=== PATIENT | female | born 1960 | race Two or more races ===

== ENCOUNTER 2022-11-10 19:46 | Emergency (ER) | payer MEDICAID ==
[~2022-11-10] VITALS: Ht 152.4 cm; Wt 81.0 kg
[2022-11-10] MEDS ORDERED: TRANEXAMIC ACID 1,000 MG in SODIUM CHL 0.9% 100 ML IV ONE (20:45)
[2022-11-10 21:44] LABS: Basophils # (auto) 0.1 10 ^3/uL (0-0.2); Eosinophils # (auto) 0 10 ^3/uL (0-0.8); Monocytes # (auto) 0.5 10 ^3/uL (0-1.3); Nucleated Red Blood Cells % 0.1 %; White Blood Cell 9.6 10^3/uL (4.4-10.8)
[2022-11-10 21:45] LABS: Basophils % (auto) 0.6 % (0.0-2.0); Eosinophils % (auto) 0.3 % (0.0-7.0); Lymphocytes # (auto) 1.2 10 ^3/uL (0.4-5.4); Lymphocytes % (auto) 12.7 % (10.0-50.0); Mean Corpuscular Hemoglobin 32.7 pg (28.0-32.0); Mean Corpuscular Hgb Conc. 33.5 g/dL (32.0-36.0); Mean Corpuscular Volume 97.6 fL (80.0-100.0); Neutrophils # (auto) 7.8 10 ^3/uL (1.6-8.6); Neutrophils % (auto) 81.4 % (37.0-80.0); Red Blood Cells 2.46 10^6/uL (4.0-5.20); Red Cell Distribution Width 13.1 % (11.8-14.3)
[2022-11-10 21:57] LABS: INR 0.97 (0.9-1.15); Partial Thromboplastin Time 21.4 sec (24.6-33.4)
[2022-11-10 22:04] LABS: Albumin 2.9 g/dL (3.4-5.0); Calcium 8.2 mg/dL (8.5-10.1); Potassium 3.8 mmol/L (3.5-5.1)
[2022-11-10 22:08] LABS: BUN/Creatinine Ratio 31.2; Bilirubin, Total 0.2 mg/dL (0.2-1.0); Total Protein 6.6 g/dL (6.4-8.2)
[2022-11-11 00:57] VITALS: BP 114/76
[2022-11-11 01:12] VITALS: BP 113/71
[2022-11-11 02:00] VITALS: BP 111/76
[2022-11-11 03:00] VITALS: BP 131/80
[2022-11-11 03:12] VITALS: BP 144/75
[2022-11-11 06:55] VITALS: BP 129/89
== END 2022-11-11 07:22 | disposition short-term general hospital (02) ==
LOC: ER 19:46
DX: S02.92XA Unspecified fracture of facial bones, initial encounter for closed fracture (principal); T14.8XXA Other injury of unspecified body region, initial encounter; R07.89 Other chest pain; W18.39XA Other fall on same level, initial encounter; Y93.89 Activity, other specified; Y92.89 Other specified places as the place of occurrence of the external cause; Y99.8 Other external cause status
CPT/HCPCS: 36415; 36430; 70450; 70486; 71045; 80053; 84484; 85025; 85610; 85730; 86850; 86900; 86901; 86920; 96365; 99285; P9016

== ENCOUNTER 2024-10-02 13:47 | Emergency (ER) | payer MEDICAID ==
[~2024-10-02] VITALS: Ht 157.5 cm; Wt 89.0 kg
--- NOTE | 2024-10-02 15:10 | ED.PDOC ---
History of Present Illness HPI Comments 64-year-old female presents with a chief complaint of bilateral leg swelling x 1 month. Patient states that she went to a clinic and was referred here to the ER. Patient mentions that she doesn't have pain to her lower legs unless she squeezes them. Patient is ambulatory and has a steady gait. Patient denies chest pain, SOB, or recent travel. No other symptoms or modifying factors present at this time. Chief Complaint: Extremity Swelling Time Seen by MD: 15:03 Reviewed Notes: Nurses Notes, Medications, Allergies Allergies: Coded Allergies: NO KNOWN ALLERGIES (Unverified , 11/07/22) Information Source: Patient Mode of Arrival: Ambulatory Severity: Moderate Timing: Months Duration: Since onset Prehospital treatment: None Past Medical History PAST MEDICAL HISTORY: Anxiety, Depression, High Lipids, HTN Surgical History: Denies all surgeries TABLE ATTENDANT History: No Pertinent TABLE ATTENDANT History Family History Family History: Unknown Social History Smoker: Non-Smoker Alcohol: Denies ETOH Use Drugs: Denies Drug Use Constitutional: denies: chills, diaphoresis, fatigue, fever, malaise, sweats, weakness, others EENTM: denies: blurred vision, double vision, ear bleeding, ear discharge, ear drainage, ear pain, ear ringing, eye pain, eye redness, hearing loss, mouth pain, mouth swelling, nasal discharge, nose bleeding, nose congestion, nose pain, photophobia, tearing, throat pain, throat swelling, voice changes, others Respiratory: denies: cough, hemoptysis, orthopnea, SOB at rest, shortness of breath, SOB with excertion, stridor, wheezing, others Cardiovascular: reports: edema (BILATERAL LOWER LEG); denies: chest pain, dizzy spells, diaphoresis, Dyspnea on exertion, irregular heart beat, left arm pain, lightheadedness, palpitations, PND, syncope, others Gastrointestinal: denies: abdomen distended, abdominal pain, blood streaked bowels, constipated, diarrhea, dysphagia, difficulty swallowing, hematemesis, melena, nausea, poor appetite, poor fluid intake, rectal bleeding, rectal pain, vomiting, others Genitourinary: denies: abnormal vagina bleeding, burning, dyspareunia, dysuria, flank pain, frequency, hematuria, incontinence, pain, , vagina discharge, urgency, others Neurological: denies: dizziness, fainting, headache, left sided numbness, left sided weakness, numbness, paresthesia, pre-existing deficit, right sided numbness, right sided weakness, seizure, speech problems, tingling, tremors, weakness, others Musculoskeletal: denies: back pain, gout, joint pain, joint swelling, muscle pain, muscle stiffness, neck pain, others Integumetry: denies: bruises, change in color, change in hair/nails, dryness, laceration, lesions, lumps, rash, wounds, others Allergic/Immunocompromised: denies: Difficulty Healing, Frequent Infections, Hives, Itching, others Hematologic/Lymphatic: denies: anemia, blood clots, easy bleeding, easy bruising, swollen glands, others Endocrine: denies: excessive hunger, excessive sweating, excessive thirst, excessive urination, flushing, intolerance to cold, intolerance to heat, unexplained weight gain, unexplained weight loss, others Psychiatric: denies: anxiety, bipolar disorder, depression, hopeless, panic disorder, schizophrenia, sleepless, suicidal, others All Other Systems: Reviewed and Negative Physical Exam General Appearance: No Apparent Distress HEENT: Normal ENT Inspection, Pharynx Normal, TMs Normal Neck: Full Range of Motion, Non-Tender, Normal, Normal Inspection Respiratory: Chest Non-Tender, Lungs Clear, No Accessory Muscle Use, No Respiratory Distress, Normal Breath Sounds Cardiovascular: No Edema, No JVD, No Murmur, No Gallop, Normal Peripheral Pulses, Regular Rate/Rhythm Breast Exam: Deferred Gastrointestinal: No Organomegaly, Non Tender, No Pulsatile Mass, Normal Bowel Sounds, Soft Genitalia: Deferred Pelvic: Deferred Rectal: Deferred Extremities: No calf tenderness, Normal capillary refill, Pedal edema Musculoskeletal : Apperance: Normal Neurologic: Alert, patch driller II-XII nml as Tested, No Motor Deficits, Normal Affect, Normal Mood, No Sensory Deficits Cerebellar Function: Normal Reflexes: Normal Skin: Dry, Normal Color, Warm Lymphatic: No Adenopathy Was a procedure done? Was a procedure done?: No Differential Dx Considerations may include: Edema, cellulitis X-Ray, Labs, Meds, VS Vital Signs Date Time Temp Pulse Resp B/P (MAP) Pulse Ox O2 Delivery O2 Flow Rate FiO2 10/02/24 14:27 97.1 83 16 142/95 (111) 97 Bilateral Ultrasound Impression: There is no sonographic evidence for DVT in the lower extremities We attempted to call the patient's for blood work as well as a urine sample but the patient has now eloped from the department's Images Reviewed?: Images reviewed and evaluated by me Time of 1ST Reevaluation: 15:33 Reevaluation 1ST: Unchanged Patient Education/Counseling: Diagnosis, Treatment, Prognosis Family Education/Counseling: Diagnosis, Treatment, Prognosis Departure 1 Departure Time of Disposition: 18:45 Impression: Primary Impression: Pedal edema Disposition: 07 LEFT AWOL/ELOPED Condition: Fair Critical Care Note Critical Care Time?: No Stability Stability form required: No Heart Score Heart Score: Heart Score Response (Comments) Value History N/A 0 EKG N/A 0 Age N/A 0 Risk Factors N/A 0 Troponin N/A 0 Total 0 I personally scribed for MONSERRAT FELDMAN MD ([email or web address]) on 10/02/24 at 15:10. Electronically submitted by Fredis Esteves ([email or web address]). I personally scribed for MONSERRAT FELDMAN MD ([email or web address]) on 10/02/24 at 16:43. Electronically submitted by Fredis Esteves ([email or web address]). MONSERRAT FELDMAN MD Oct 02, 2024 15:10
--- NOTE | 2024-10-02 15:47 | DVH ---
BILATERAL LOWER EXTREMITY VENOUS DOPPLER CLINICAL HISTORY: swelling Technique: Duplex Doppler evaluation of the deep venous systems of both lower extremities from the co mmon femoral veins to the popliteal veins including color Doppler and spectral/pulsed waveform analys is was performed. COMPARISON: None FINDINGS: The right and left common femoral, superficial femoral, popliteal, posterior tibial veins and trifur cations appear patent with normal augmentation, phasicity, compressibility and color-flow. IMPRESSION: 1. There is no sonographic evidence for DVT in the lower extremities. HS:Y
== END 2024-10-02 20:07 | disposition left against medical advice (07) ==
LOC: ER 13:47
DX: R60.0 Localized edema (principal); F41.9 Anxiety disorder, unspecified; F32.9 Major depressive disorder, single episode, unspecified; E78.5 Hyperlipidemia, unspecified; I10 Essential (primary) hypertension
CPT/HCPCS: 93970

== ENCOUNTER 2024-10-05 12:37 | Emergency (ER) | payer MEDICAID ==
[~2024-10-05] VITALS: Ht 157.5 cm; Wt 90.3 kg
[2024-10-05 14:12] LABS: Basophils # (auto) 0 10 ^3/uL (0-0.2); Basophils % (auto) 0.6 % (0.0-2.0); Eosinophils # (auto) 0.2 10 ^3/uL (0-0.8); Eosinophils % (auto) 2.5 % (0.0-7.0); Hematocrit 34.6 % (36.0-46.0); Hemoglobin 11.3 g/dL (12.2-16.2); Lymphocytes % (auto) 30.2 % (10.0-50.0); Mean Corpuscular Hemoglobin 31.6 pg (28.0-32.0); Mean Corpuscular Hgb Conc. 32.7 g/dL (32.0-36.0); Mean Corpuscular Volume 96.8 fL (80.0-100.0); Monocytes # (auto) 0.6 10 ^3/uL (0-1.3); Monocytes % (auto) 8.6 % (0.0-12.0); Neutrophils # (auto) 3.8 10 ^3/uL (1.6-8.6); Neutrophils % (auto) 58.1 % (37.0-80.0); Nucleated Red Blood Cells % 0.1 %; Platelet Count (auto) 343 10^3/uL (140-450); Red Blood Cells 3.57 10^6/uL (4.0-5.20); Red Cell Distribution Width 13.9 % (11.8-14.3); White Blood Cell 6.5 10^3/uL (4.4-10.8)
[2024-10-05 14:13] LABS: Anion Gap 7 (5-15); Carbon Dioxide 26 mmol/L (20-31); Chloride 105 mmol/L (98-107); Potassium 4.5 mmol/L (3.5-5.1); Sodium 138 mmol/L (136-145)
[2024-10-05 14:14] LABS: Calcium 9.4 mg/dL (8.7-10.4)
[2024-10-05 14:18] LABS: Glucose 83 mg/dL (74-106)
[2024-10-05 14:19] LABS: Blood Urea Nitrogen 17 mg/dL (9-23)
--- NOTE | 2024-10-05 15:58 | ED.PDOC ---
Musculoskeletal HPI Comments 64 y.o female with PMHx of HTN, depression and hyperlipidemia, presents to the ED for a chief complaint of bilateral lower extremity swelling and pain that has been ongoing for more than one month. Patient reports swelling starts below her knee, radiates down to her feet and has pain on palpation. Patient denies any water pill use, chest pain, SOB, fever, or chills. Chief Complaint: Lower Extremity Time Seen by MD: 15:22 Primary Care Provider: stoop Reviewed Notes: Nurses Notes, Medications, Allergies Allergies: Coded Allergies: NO KNOWN ALLERGIES (Unverified , 11/07/22) Information Source: Patient Mode of Arrival: Ambulatory Location: Bilateral Extremity Location: Foot, Leg Timing: Months Severity: Moderate Able to Move Extremity: Yes Bear Weight: Fully Pain: Moderate Mechanism: None Circumstances: Spontaneous Onset of Symptoms: Spontaneous Symptoms: Swelling, Pain DVT Risk Factors: NONE Associated signs and symptoms: Swelling, Leg pain Past Medical History PAST MEDICAL HISTORY: Anxiety, Depression, High Lipids, HTN Surgical History: Denies all surgeries NSH TEACHER History: No Pertinent NSH TEACHER History Family History Family History: Unknown Social History Smoker: Non-Smoker Alcohol: Denies ETOH Use Drugs: Denies Drug Use Lives In: Home Constitutional: denies: chills, diaphoresis, fatigue, fever, malaise, sweats, weakness, others EENTM: denies: blurred vision, double vision, ear bleeding, ear discharge, ear drainage, ear pain, ear ringing, eye pain, eye redness, hearing loss, mouth pain, mouth swelling, nasal discharge, nose bleeding, nose congestion, nose pain, photophobia, tearing, throat pain, throat swelling, voice changes, others Respiratory: denies: cough, hemoptysis, orthopnea, SOB at rest, shortness of breath, SOB with excertion, stridor, wheezing, others Cardiovascular: denies: chest pain, dizzy spells, diaphoresis, Dyspnea on exertion, edema, irregular heart beat, left arm pain, lightheadedness, palpitations, PND, syncope, others Gastrointestinal: denies: abdomen distended, abdominal pain, blood streaked bowels, constipated, diarrhea, dysphagia, difficulty swallowing, hematemesis, melena, nausea, poor appetite, poor fluid intake, rectal bleeding, rectal pain, vomiting, others Genitourinary: denies: abnormal vagina bleeding, burning, dyspareunia, dysuria, flank pain, frequency, hematuria, incontinence, pain, , vagina discharge, urgency, others Neurological: denies: dizziness, fainting, headache, left sided numbness, left sided weakness, numbness, paresthesia, pre-existing deficit, right sided numbness, right sided weakness, seizure, speech problems, tingling, tremors, weakness, others Musculoskeletal: reports: others (Bilateral leg and feet swelling and pain ); denies: back pain, gout, joint pain, joint swelling, muscle pain, muscle stiff ness, neck pain Integumetry: denies: bruises, change in color, change in hair/nails, dryness, laceration, lesions, lumps, rash, wounds, others Allergic/Immunocompromised: denies: Difficulty Healing, Frequent Infections, Hives, Itching, others Hematologic/Lymphatic: denies: anemia, blood clots, easy bleeding, easy bru ising, swollen glands, others Endocrine: denies: excessive hunger, excessive sweating, excessive thirst, e xcessive urination, flushing, intolerance to cold, intolerance to heat, unexplained weight gain, unexplained weight loss, others Psychiatric: denies: anxiety, bipolar disorder, depression, hopeless, panic disorder, schizophrenia, sleepless, suicidal, others All Other Systems: Reviewed and Negative Physical Exam General Appearance: No Apparent Distress, Normal HEENT: Normal ENT Inspection, Pharynx Normal, TMs Normal Neck: Full Range of Motion, Non-Tender, Normal, Normal Inspection Respiratory: Chest Non-Tender, Lungs Clear, No Accessory Muscle Use, No Respiratory Distress, Normal Breath Sounds Cardiovascular: No Edema, No JVD, No Murmur, No Gallop, Normal Peripheral Pulses, Regular Rate/Rhythm Breast Exam: Deferred Gastrointestinal: No Organomegaly, Non Tender, No Pulsatile Mass, Normal Bowel Sounds, Soft Genitalia: Deferred Pelvic: Deferred Rectal: Deferred Extremities: No calf tenderness, Normal capillary refill, Normal inspection, Normal range of motion, Non-tender, Other (2+ bilateral lower extremity edema extending up to the knees, symmetric) Musculoskeletal : Apperance: Normal Neurologic: Alert, plumbing warehouse helper II-XII nml as Tested, No Motor Deficits, Normal Affect, Normal Mood, No Sensory Deficits Cerebellar Function: Normal Reflexes: Normal Skin: Dry, Normal Color, Warm Lymphatic: No Adenopathy Was a procedure done? Was a procedure done?: No Differential Diagnosis EXT Differential Diagnosis: Compartment Syndrome, Gout, Rheumatoid X-Ray, Labs, Meds, VS Vital Signs Date Time Temp Pulse Resp B/P (MAP) Pulse Ox O2 Delivery O2 Flow Rate FiO2 10/05/24 17:12 98.6 86 20 135/83 (100) 97 98.6 10/05/24 17:12 86 16 97 Room Air 10/05/24 12:57 98.0 84 19 146/92 (110) 97 Lab Test 10/05/24 13:29 Range/Units White Blood Count 6.5 4.4-10.8 10^3/uL Red Blood Count 3.57 L 4.0-5.20 10^6/uL Hemoglobin 11.3 L 12.2-16.2 g/dL Hematocrit 34.6 L 36.0-46.0 % Mean Corpuscular Volume 96.8 80.0-100.0 fL Mean Corpuscular Hemoglobin 31.6 28.0-32.0 pg Mean Corpuscular Hemoglobin Concent 32.7 32.0-36.0 g/dL Red Cell Distribution Width 13.9 11.8-14.3 % Platelet Count 343 140-450 10^3/uL Mean Platelet Volume 7.4 6.9-10.8 fL Neutrophils (%) (Auto) 58.1 37.0-80.0 % Lymphocytes (%) (Auto) 30.2 10.0-50.0 % Monocytes (%) (Auto) 8.6 0.0-12.0 % Eosinophils (%) (Auto) 2.5 0.0-7.0 % Basophils (%) (Auto) 0.6 0.0-2.0 % Neutrophils # (Auto) 3.8 1.6-8.6 10 ^3/uL Lymphocytes # (Auto) 2.0 0.4-5.4 10 ^3/uL Monocytes # (Auto) 0.6 0-1.3 10 ^3/uL Eosinophils # (Auto) 0.2 0-0.8 10 ^3/uL Basophils # (Auto) 0 0-0.2 10 ^3/uL Nucleated Red Blood Cells 0.1 % Sodium Level 138 136-145 mmol/L Potassium Level 4.5 3.5-5.1 mmol/L Chloride Level 105 98-107 mmol/L Carbon Dioxide Level 26 20-31 mmol/L Anion Gap 7 5-15 Blood Urea Nitrogen 17 9-23 mg/dL Creatinine 0.68 0.550-1.02 mg/dL Glomerular Filtration Rate Calc 96 >90 mL/min BUN/Creatinine Ratio 25.0 H 10.0-20.0 Serum Glucose 83 74-106 mg/dL Calcium Level 9.4 8.7-10.4 mg/dL Troponin I High Sensitivity 3 L </=34 ng/L B-Type Natriuretic Peptide 33.15 0-100 pg/mL X-Ray, Labs, Meds, VS Comment 64-year-old female here today with evidence of bilateral lower extremity edema extending up to the knees. Vitals signs stable, afebrile. Labs overall reassuring without any significant acute findings. Patient was instructed on elevating her legs and wearing compression stockings and avoiding excessive salt intake and was instructed to follow up with her primary care provider within 2-3 days for re-evaluation and for consideration of the starting a diuretic. Patient expressed understanding of this. Patient ambulating with a steady gait without assistance. Patient discharged home in stable condition in no distress was strict return precautions for any signs of chest pain, respiratory distress, numbness, weakness, fevers, p.o. intolerance, or any other concerning symptoms. Time of 1ST Reevaluation: 15:54 Reevaluation 1ST: Unchanged Patient Education/Counseling: Diagnosis, Treatment, Prognosis Family Education/Counseling: No Family Present Departure 1 Departure Time of Disposition: 18:23 Impression: Primary Impression: Dependent edema Additional Impression: Leg swelling Disposition: 01 HOME / SELF CARE / HOMELESS Condition: Stable Critical Care Note Critical Care Time?: No Stability Stability form required: No I personally scribed for JAMESON COLLINS MD ([email or web address]) on 10/05/24 at 15:58. Electronically submitted by Ya Alfaro ([facility]). JAMESON COLLINS MD Oct 05, 2024 15:58
[2024-10-05 17:12] VITALS: BP 135/83; PULSE 86; RESP 16; TEMP 98.6; O2SAT 97
== END 2024-10-05 17:16 | disposition home or self-care (01) ==
LOC: ER 12:43
DX: R60.0 Localized edema (principal); M79.89 Other specified soft tissue disorders; I10 Essential (primary) hypertension; E78.5 Hyperlipidemia, unspecified; F41.9 Anxiety disorder, unspecified; F32.A Depression, unspecified; R06.02 Shortness of breath
CPT/HCPCS: 36415; 80048; 83880; 84484; 85025

== ENCOUNTER 2024-11-20 10:55 | Inpatient (IN) | payer MEDICAID ==
[~2024-11-20] VITALS: Ht 152.4 cm; Wt 96.0 kg
--- NOTE | 2024-11-20 10:59 | ED.PDOC ---
HPI Comments HPI: Poor Historian. 64y F who presents to the ED via EMS for chief complaint of chest pain. Pt had the following course of events: - pt states she was at urgent care for chest pain and pt told urgent care staff, she was short of breath and having chest pain. Patient was given an aspirin at the urgent care. - EMS arrived on scene and offered pt 1 nitro but pt states her chest pain went away and was brought to the ED with no interventions done - pt in the ED, states she has been having chest pain since yesterday and states the pain started while pt was cooking. - pt states the pain was substernal, constant, non-radiating, with noted increased pain while drinking liquids but no associated relieving factors. - pt states she has been sick for the past few days with associated"cold" symptoms - pt otherwise denies having this chest pain in the past PMH: hypertension, hyperlipidemia, depression PSH: denies Allergies: nkda Social history: denies tobacco use, denies ETOH use, denies drug use REVIEW OF SYSTEMS: CONSTITUTIONAL: Denies acute: fever, diaphoresis, chills, HEAD: Denies acute: headache, photophobia Eyes: Denies acute: Double vision, vision loss, eye pain, eye discharge. EARS: Denies acute: tinnitus, hearing loss, ear discharge, ear pain, THROAT: Denies acute: sore throat, swelling, difficulty swallowing , pain with swa llowing, change in voice. NECK: Denies acute: neck pain, neck swelling, stiff neck. HEART: Denies acute : palpitations, LUNGS: Denies acute: wheezing, cough, hemoptysis ABDOMEN: Denies acute: abdominal pain, Nausea, Vomiting, diarrhea, melena , hematemesis, hematochezia SKIN: Denies acute: rash, redness, lesions, itchiness. EXTREMITIES: Denies acute: calf pain, numbness, tingling, weakness, denies pain in extremity. Denies acute: Low back pain. Neuro: Denies acute: focal neurological deficit, motor or sensory focal neurological deficit, tremors, seizure like activity, confusion, dizziness, change in mental status, loss of bowel or bladder function, cauda equina like symptoms. : Denies acute: dysuria, hematuria, flank pain, increase in urinary frequency. PSYCH: Denies acute: hallucination, suicidal ideation, homicidal ideation. FEMALE: Denies acute: abnormal vaginal bleeding, foul odor, unusual discharge. PHYSICAL EXAM: General: [id number] acute distress, awake and alert. Head: normocephalic, atraumatic. Neck: supple, trachea is midline, no swelling. Throat: Normal phonation. Eyes:, no erythema, no purulent discharge, no proptosis, no icterus. Heart: regular rate, regular rhythm, no significant murmur appreciated. Lungs: no apparent respiratory distress, Able to speak in full sentences. No wheezing, no rhonchi, no crackles. No stridors Clear to auscultation bilaterally. Abdomen: non tender to palpation, non distended, soft, no guarding, no rebound, + bowel sounds. Neuro: Awake, Alert, oriented to name, self, situation, follows commands GCS=15. Speech is normal. Skin: no petechia, no purpura, no cyanosis, non-pale, not jaundice. Lower extremities: --trace bilateral - Pitting edema no deformity, no focal swelling, no calf TTP. Makes eye contact. moves all four extremities. Face: no apparent facial droop. ED COURSE: Time Seen by MD: 11:05 Primary Care Provider: daisy Reviewed Notes: Nurses Notes, Medications, Allergies Allergies: Coded Allergies: NO KNOWN ALLERGIES (Unverified , 11/07/22) Home Meds Reported Medications Bupropion HCl (Bupropion Hydrochloride) 75 Mg Tab, 1 TAB PO DAILY 11/20/24 Sertraline Hcl (Sertraline Hcl) 100 Mg Tab, 1 TAB PO DAILY 11/20/24 Losartan Potassium (Losartan Potassium) 50 Mg Tab, 1 TAB PO DAILY 11/20/24 Aripiprazole (Aripiprazole) 20 Mg Tab, PO 11/20/24 Information Source: Patient, Emergency Med Personnel Mode of Arrival: EMS Brought in by: EMS Past Medical History PAST MEDICAL HISTORY: Anxiety, Depression, High Lipids, HTN Surgical History: Denies all surgeries CATEGORY DEVELOPMENT MANAGER History: No Pertinent CATEGORY DEVELOPMENT MANAGER History Family History Family History: Unknown Social History Smoker: Non-Smoker Alcohol: Denies ETOH Use Drugs: Denies Drug Use Lives In: Home Was a procedure done? Was a procedure done?: No CP Differential Dx Differential Diagnosis: N/A Differential Diagnosis: Other (Ddx include but not limitied to gastritis, musculoskeletal pain, radiculopathy, atypical chest pain, dissection, aneurysm, ACS, unstable angina, hiatal hernia, GERD, anxiety, costochondritis, PE, pneum othroax, neoplasm, cardiac ischemia, drug abuse, anemia.) X-Ray, Labs, Meds, VS Vital Signs Date Time Temp Pulse Resp B/P (MAP) Pulse Ox O2 Delivery O2 Flow Rate FiO2 11/20/24 14:05 78 11/20/24 11:23 161/104 11/20/24 11:14 84 17 98 Room Air* 0 21 11/20/24 11:14 97.4 84 17 161/104 (123) 98 97.4 11/20/24 11:02 98.1 89 17 168/101 (123) 96 98.1 11/20/24 10:57 86 Lab Test 11/20/24 14:45 11/20/24 12:10 11/20/24 11:10 Range/Units Troponin I High Sensitivity 4 4 4 </=34 ng/L White Blood Count 7.9 4.4-10.8 10^3/uL Red Blood Count 3.73 L 4.0-5.20 10^6/uL Hemoglobin 11.9 L 12.2-16.2 g/dL Hematocrit 35.7 L 36.0-46.0 % Mean Corpuscular Volume 95.6 80.0-100.0 fL Mean Corpuscular Hemoglobin 31.9 28.0-32.0 pg Mean Corpuscular Hemoglobin Concent 33.4 32.0-36.0 g/dL Red Cell Distribution Width 13.3 11.8-14.3 % Platelet Count 305 140-450 10^3/uL Mean Platelet Volume 7.5 6.9-10.8 fL Neutrophils (%) (Auto) 68.7 37.0-80.0 % Lymphocytes (%) (Auto) 21.9 10.0-50.0 % Monocytes (%) (Auto) 7.7 0.0-12.0 % Eosinophils (%) (Auto) 1.3 0.0-7.0 % Basophils (%) (Auto) 0.4 0.0-2.0 % Neutrophils # (Auto) 5.4 1.6-8.6 10 ^3/uL Lymphocytes # (Auto) 1.7 0.4-5.4 10 ^3/uL Monocytes # (Auto) 0.6 0-1.3 10 ^3/uL Eosinophils # (Auto) 0.1 0-0.8 10 ^3/uL Basophils # (Auto) 0 0-0.2 10 ^3/uL Nucleated Red Blood Cells 0.1 % Sodium Level 140 136-145 mmol/L Potassium Level 3.9 3.5-5.1 mmol/L Chloride Level 106 98-107 mmol/L Carbon Dioxide Level 26 20-31 mmol/L Anion Gap 8 5-15 Blood Urea Nitrogen 13 9-23 mg/dL Creatinine 0.61 0.550-1.02 mg/dL Glomerular Filtration Rate Calc 99 >90 mL/min BUN/Creatinine Ratio 21.3 H 10.0-20.0 Serum Glucose 127 H 74-106 mg/dL Hemoglobin A1c 5.5 <5.7 % A1C Lactic Acid Level 1.2 0.4-2.0 mmol/L Calcium Level 9.7 8.7-10.4 mg/dL Total Bilirubin 0.4 0.2-1.0 mg/dL Aspartate Amino Transferase (AST) 22 13-40 U/L Alanine Aminotransferase (ALT) 22 7-40 U/L Alkaline Phosphatase 117 H 46-116 U/L B-Type Natriuretic Peptide 54.85 0-100 pg/mL Total Protein 7.8 5.7-8.2 g/dL Albumin 4.4 3.2-4.8 g/dL Triglycerides Level 73 < 150 mg/dL Cholesterol Level 181 < 200 mg/dL LDL Cholesterol 107 H < 100 mg/dL HDL Cholesterol 71 H 40-59 mg/dL Lipase 33 12-53 U/L Thyroid Stimulating Hormone (TSH) 2.89 0.55-4.78 uIU/mL Current Medications Medications (Trade) Dose Ordered Sig/Robb Route Start Time Stop Time Status Last Admin Nitroglycerin (Ntrostat Sublingual) 0.4 mg ONCE ONCE SL 11/20/24 11:15 11/20/24 11:16 DC 11/20/24 11:[address] [address] Ph: [phone] DIAGNOSTIC IMAGING Diagnostic Imaging Report : [id number] Signed PATIENT: AMIE MCBRIDEMACCT: [id number] UNIT: [id number] : 1960 LOC: ER ROOM / BED: / AGE / SEX: 64 / F ADM STATUS: REG ER SERVICE 1058 ORDERING PHYSICIAN: RADHA HERNANDEZ DO PROCEDURE(s): CXRP - CHEST PORTABLE REASON: CP ORDER NUMBER(s): [id number], ACCESSION NUMBER(s): [id number] XY CHEST PORTABLE, HISTORY: CP COMPARISON: XY CHEST PORTABLE on DOS: 11/10/22 XY CHEST PORTABLE on DOS: 11/10/22 TECHNICAL DATA: 1 view of the chest was obtained. FINDINGS: Lines and tubes: None Cardiomediastinal silhouette: normal Pulmonary vasculature: normal Lung expansion: normal Lung airspace: normal Lung interstitium: normal Pleura: normal Pneumothorax: no Bones: Unremarkable Other: no IMPRESSION: No acute intrathoracic abnormality. ATED BY: DARRELL ABEL MD DICTATED DATE/TIME: 11/20/24 1130 SIGNED BY: DARRELL ABEL MD SIGNED DATE/TIME: 11/20/24 1130 CC: Time of 1ST Reevaluation: 21:19 Reevaluation 1ST: Improved Patient Education/Counseling: Diagnosis, Treatment Family Education/Counseling: No Family Present Comments Patient presented with the above HPI.--cardiac---workup was initiated. patient was found with the above mentioned diagnosis. the following medications were ordered: please refer to order lists of meds and tests obtained by myself Dr. Hernandez. Patient ED course and VS have been stabilized. Patient has been reassessed in the ED and remained in a stable condition. Pertinent incidental findings were discussed with the patient and/or family. Patient/family voices understanding and is agreeable with plan. Patient has been observed in the ED adequate length of time to insure improvement/stability. Escalation of care considered: Consideration of escalation to observation or admission Patient was ADMITTED to the medicine team for further evaluation and treatment of their presentation. All the reports of any imaging studies that were ordered by myself were reviewed by myself. Departure 1 Departure Time of Disposition: 11:38 Impression: Primary Impression: Chest pain Disposition: ADMITTED INPATIENT Admit to: Tele Condition: Guarded Discharged With: Self Critical Care Note Critical Care Time?: No Heart Score Heart Score: Heart Score Response (Comments) Value History Moderate Suspicious 1 EKG Normal 0 Age >65 2 Risk Factors 1 or 2 risk factors 1 Troponin Normal limit 0 Total 4 I personally scribed for RADHA HERNANDEZ DO ([email or web address]) on 11/20/24 at 10:59. Electronically submitted by aDrlene Cloud ([employer] I personally scribed for RADHA HERNANDEZ DO ([email or web address]) on 11/20/24 at 11:21. Electronically submitted by Darlene Cloud ([email or web address]). I personally scribed for RADHA HERNANDEZ DO ([email or web address]) on 11/20/24 at 11:38. Electronically submitted by Darlene Cloud ([employer] I personally scribed for RADHA HERNANDEZ DO ([email or web address]) on 11/20/24 at 12:42. Electronically submitted by Darlene Cloud ([employer] RADHA HERNANDEZ DO Nov 20, 2024 10:59
[2024-11-20 11:14] VITALS: PULSE 84; RESP 17; O2SAT 98
[2024-11-20] MEDS: NITROGLYCERIN 0.4 MG SL TAB SL ONE (11:23)
--- NOTE | 2024-11-20 11:32 | DVH ---
XY CHEST PORTABLE, HISTORY: CP COMPARISON: XY CHEST PORTABLE on DOS: 11/10/22 XY CHEST PORTABLE on DOS: 11/10/22 TECHNICAL DATA: 1 view of the chest was obtained. FINDINGS: Lines and tubes: None Cardiomediastinal silhouette: normal Pulmonary vasculature: normal Lung expansion: normal Lung airspace: normal Lung interstitium: normal Pleura: normal Pneumothorax: no Bones: Unremarkable Other: no IMPRESSION: No acute intrathoracic abnormality.
[2024-11-20 11:33] LABS: Basophils # (auto) 0 10 ^3/uL (0-0.2); Basophils % (auto) 0.4 % (0.0-2.0); Eosinophils # (auto) 0.1 10 ^3/uL (0-0.8); Eosinophils % (auto) 1.3 % (0.0-7.0); Hematocrit 35.7 % (36.0-46.0); Hemoglobin 11.9 g/dL (12.2-16.2); Lymphocytes # (auto) 1.7 10 ^3/uL (0.4-5.4); Lymphocytes % (auto) 21.9 % (10.0-50.0); Mean Corpuscular Hemoglobin 31.9 pg (28.0-32.0); Mean Corpuscular Hgb Conc. 33.4 g/dL (32.0-36.0); Mean Corpuscular Volume 95.6 fL (80.0-100.0); Monocytes # (auto) 0.6 10 ^3/uL (0-1.3); Monocytes % (auto) 7.7 % (0.0-12.0); Neutrophils # (auto) 5.4 10 ^3/uL (1.6-8.6); Neutrophils % (auto) 68.7 % (37.0-80.0); Nucleated Red Blood Cells % 0.1 %; Platelet Count (auto) 305 10^3/uL (140-450); Red Blood Cells 3.73 10^6/uL (4.0-5.20); Red Cell Distribution Width 13.3 % (11.8-14.3); White Blood Cell 7.9 10^3/uL (4.4-10.8)
[2024-11-20 11:49] LABS: Alanine Aminotransferase 22 U/L (7-40); Albumin 4.4 g/dL (3.2-4.8); Anion Gap 8 (5-15); Aspartate Aminotransferase 22 U/L (13-40); BUN/Creatinine Ratio 21.3 (10.0-20.0); Bilirubin, Total 0.4 mg/dL (0.2-1.0); Blood Urea Nitrogen 13 mg/dL (9-23); Calcium 9.7 mg/dL (8.7-10.4); Carbon Dioxide 26 mmol/L (20-31); Chloride 106 mmol/L (98-107); Lipase 33 U/L (12-53); Potassium 3.9 mmol/L (3.5-5.1); Sodium 140 mmol/L (136-145); Total Protein 7.8 g/dL (5.7-8.2)
[2024-11-20 11:50] LABS: Alkaline Phosphatase 117 U/L (46-116); Glucose 127 mg/dL (74-106)
--- NOTE | 2024-11-20 15:35 | DVHHP2 ---
History of Present Illness Reason for Visit: Chest pain History of Present Illness Marleny Pruitt is a 64-year-old female with past medical history of hypertension, hyperlipidemia, depression, and anxiety presents to the ED with chest pain and shortness of breath that started to occur when she was cooking states that the pain is 10/10 pressure-like and intermittent. Patient's spouse at the bedside also reports that they went to the urgent care was complaining of chest pain was given aspirin with improvement. Patient denies any recent sick contacts, recent trauma or injury, fever chills chills, abdominal pain, nausea, vomiting, diarrhea, lightheadedness, weakness, and dizziness. Patient also reports that she is taking all her medications as prescribed. Cardiovascular: HTN, hyperipidemia Psych: Anxiety, Depression Past Surgical History: None Family History: None Smoke: No ALCOHOL: none Drugs: None Lives: with Family Domestic Violence: Neg Review of Systems Respiratory: Shortness of breath Cardiovascular: Chest Pain Allergies: Coded Allergies: NO KNOWN ALLERGIES (Unverified , 11/07/22) Exam Vital Signs Vital Signs Date Time Temp Pulse Resp B/P (MAP) Pulse Ox O2 Delivery O2 Flow Rate FiO2 11/20/24 11:23 161/104 11/20/24 11:14 84 17 98 Room Air* 0 21 11/20/24 11:14 97.4 97.4 General Appearance: Alert, Oriented X3, Cooperative, No acute distress HEENT: Atraumatic, PERRLA, EOMI, Mucous membr. moist/pink Respiratory: Clear to auscultation, Normal air movement Cardiovascular: Regular rate, Normal S1, Normal S2, No murmurs Abdominal: Normal bowel sounds, Soft, No tenderness, No hepatospenomegaly, No masses Extremities: No clubbing, No cyanosis, No edema, Normal pulses, No tenderness/swelling Skin: No rashes, No breakdown, No significant lesion Neuro: Normal gait, Normal speech, Strength at 5/5 X4 ext, Normal tone, Sensation intact Psych/Mental Status: Mental status NL, Mood NL Labs/Xrays Labs Test 11/20/24 14:45 11/20/24 11:10 Range/Units Troponin I High Sensitivity 4 </=34 ng/L White Blood Count 7.9 4.4-10.8 10^3/uL Red Blood Count 3.73 L 4.0-5.20 10^6/uL Hemoglobin 11.9 L 12.2-16.2 g/dL Hematocrit 35.7 L 36.0-46.0 % Mean Corpuscular Volume 95.6 80.0-100.0 fL Mean Corpuscular Hemoglobin 31.9 28.0-32.0 pg Mean Corpuscular Hemoglobin Concent 33.4 32.0-36.0 g/dL Red Cell Distribution Width 13.3 11.8-14.3 % Platelet Count 305 140-450 10^3/uL Mean Platelet Volume 7.5 6.9-10.8 fL Neutrophils (%) (Auto) 68.7 37.0-80.0 % Lymphocytes (%) (Auto) 21.9 10.0-50.0 % Monocytes (%) (Auto) 7.7 0.0-12.0 % Eosinophils (%) (Auto) 1.3 0.0-7.0 % Basophils (%) (Auto) 0.4 0.0-2.0 % Neutrophils # (Auto) 5.4 1.6-8.6 10 ^3/uL Lymphocytes # (Auto) 1.7 0.4-5.4 10 ^3/uL Monocytes # (Auto) 0.6 0-1.3 10 ^3/uL Eosinophils # (Auto) 0.1 0-0.8 10 ^3/uL Basophils # (Auto) 0 0-0.2 10 ^3/uL Nucleated Red Blood Cells 0.1 % Sodium Level 140 136-145 mmol/L Potassium Level 3.9 3.5-5.1 mmol/L Chloride Level 106 98-107 mmol/L Carbon Dioxide Level 26 20-31 mmol/L Anion Gap 8 5-15 Blood Urea Nitrogen 13 9-23 mg/dL Creatinine 0.61 0.550-1.02 mg/dL Glomerular Filtration Rate Calc 99 >90 mL/min BUN/Creatinine Ratio 21.3 H 10.0-20.0 Serum Glucose 127 H 74-106 mg/dL Lactic Acid Level 1.2 0.4-2.0 mmol/L Calcium Level 9.7 8.7-10.4 mg/dL Total Bilirubin 0.4 0.2-1.0 mg/dL Aspartate Amino Transferase (AST) 22 13-40 U/L Alanine Aminotransferase (ALT) 22 7-40 U/L Alkaline Phosphatase 117 H 46-116 U/L B-Type Natriuretic Peptide 54.85 0-100 pg/mL Total Protein 7.8 5.7-8.2 g/dL Albumin 4.4 3.2-4.8 g/dL Lipase 33 12-53 U/L XY CHEST PORTABLE, HISTORY: CP COMPARISON: XY CHEST PORTABLE on DOS: 11/10/22 XY CHEST PORTABLE on DOS: 11/10/22 TECHNICAL DATA: 1 view of the chest was obtained. FINDINGS: Lines and tubes: None Cardiomediastinal silhouette: normal Pulmonary vasculature: normal Lung expansion: normal Lung airspace: normal Lung interstitium: normal Pleura: normal Pneumothorax: no Bones: Unremarkable Other: no IMPRESSION: No acute intrathoracic abnormality. Assessment/Plan Assessment/Plan Assessment Chest pain Anemia Hypertension Obesity History of hyperlipidemia History of depression History of anxiety Plan Admit to tele Trend H&H EKG noted Lactic noted BNP Troponin negative x2 Echo ordered ACS workup ACS protocol Diet Antihypertensives Antiemetics Pain management Home medications reconciled Lovenox Counseled patient on lifestyle modifications, diet, and exercise Discussed plan of care with patient, patient's nurse, and nurse Plan discussed with: Patient, Spouse My Orders Orders - JOSH MARCOS TRACTOR OPERATOR HELPER Procedure Category Date Status Time Echo 2d Mode Cardiac US 11/20/24 Verified DOP 15:31 Thyroid Stimulating LAB 11/20/24 Verified Hormone 15:31 Lipid Panel LAB 11/20/24 Verified 15:31 Drug Screen LAB 11/20/24 Verified 15:31 Hemoglobin A1c LAB 11/20/24 Verified 15:31 Admit ADMIT 11/20/24 Verified 15:31 Code Status CODE 11/20/24 Verified 15:31 Vital Signs ELTON 11/20/24 Verified 15:31 Reed Fixer ELTON 11/20/24 Verified 15:31 Cardiac DIET 11/20/24 Verified Diet-2gna,Lofat,Lochol Dinner Aspirin Tablet PHA 11/21/24 Verified 10:00 Lipitor 40mg Hs PHA 11/20/24 Verified Hi-Intensity 22:00 Morphine Sulfate PHA 11/20/24 Verified Injection 15:45 Acetaminophen Tablet PHA 11/20/24 Verified (Tylenol Tablet) 15:45 Complete Blood Count LAB 11/21/24 Verified 04:00 Basic Metabolic Panel LAB 11/21/24 Verified 04:00 Date of Service: Nov 20, 2024 Billing Provider: JOSH MARCOS Common Visit Codes: [id number] INP/OBS CARE (HIGH) JOSH MARCOS Nov 20, 2024 15:35
[2024-11-20] MEDS ORDERED: BUPR75TA98 PO (15:45)
[2024-11-20] MEDS ORDERED: NITROGLYCERIN 0.4 MG SL TAB SL PRN ×2 (15:45)
[2024-11-20] MEDS ORDERED: LOSA-534 PO (15:45)
[2024-11-20] MEDS ORDERED: MORPHINE SULFATE 4 MG/ML SYR/VIAL IV PRN (15:45)
[2024-11-20] MEDS ORDERED: ARIP20TA49 PO (15:45)
[2024-11-20] MEDS ORDERED: SERT-160 PO (15:45)
[2024-11-20] MEDS ORDERED: hydrALAZINE HCL 20 MG/ML VL IV PRN (16:00)
[2024-11-20 16:44] LABS: Triglycerides 73 mg/dL (< 150)
[2024-11-20 16:46] LABS: Cholesterol 181 mg/dL (< 200)
[2024-11-20 16:49] LABS: HDL Cholesterol 71 mg/dL (40-59); LDL Cholesterol 107 mg/dL (< 100)
[2024-11-20 18:00] VITALS: PULSE 70; RESP 18; O2SAT 98
[2024-11-20 18:04] VITALS: BP 144/80; PULSE 70; TEMP 98.2; O2SAT 98
[2024-11-20] MEDS: MORPHINE SULFATE INJ 2 MG/ml SYRG IV PRN (18:10)
[2024-11-20 20:00] VITALS: PULSE 75; PULSE 79; RESP 14; O2SAT 98
[2024-11-20] MEDS: ATORVASTATIN 20 MG TAB PO SCH (20:38)
[2024-11-20 20:52] VITALS: BP 118/71; PULSE 75; RESP 14; TEMP 97.8; O2SAT 98
[2024-11-21] VITALS (8 sets, daily range): BP systolic 110–150; BP diastolic 62–103; PULSE 72–82; RESP 15–19; TEMP 97.4–98.4; O2SAT 93–100
[2024-11-21 07:14] LABS: Basophils # (auto) 0 10 ^3/uL (0-0.2); Basophils % (auto) 0.7 % (0.0-2.0); Eosinophils # (auto) 0.1 10 ^3/uL (0-0.8); Eosinophils % (auto) 2.8 % (0.0-7.0); Hemoglobin 11.5 g/dL (12.2-16.2); Lymphocytes # (auto) 1.3 10 ^3/uL (0.4-5.4); Lymphocytes % (auto) 24.9 % (10.0-50.0); Mean Corpuscular Hemoglobin 31.8 pg (28.0-32.0); Mean Corpuscular Volume 96.5 fL (80.0-100.0); Monocytes # (auto) 0.4 10 ^3/uL (0-1.3); Monocytes % (auto) 8.8 % (0.0-12.0); Neutrophils # (auto) 3.2 10 ^3/uL (1.6-8.6); Neutrophils % (auto) 62.8 % (37.0-80.0); Platelet Count (auto) 278 10^3/uL (140-450); Red Blood Cells 3.62 10^6/uL (4.0-5.20); Red Cell Distribution Width 13.7 % (11.8-14.3); White Blood Cell 5.1 10^3/uL (4.4-10.8)
[2024-11-21 07:24] LABS: Anion Gap 8 (5-15); Carbon Dioxide 25 mmol/L (20-31); Chloride 106 mmol/L (98-107); Potassium 4.3 mmol/L (3.5-5.1); Sodium 139 mmol/L (136-145)
--- NOTE | 2024-11-21 07:24 | ECG ---
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
[2024-11-21 07:30] LABS: BUN/Creatinine Ratio 17.1 (10.0-20.0); Blood Urea Nitrogen 12 mg/dL (9-23); Magnesium 2.3 mg/dL (1.6-2.6)
[2024-11-21 07:33] LABS: Glucose 108 mg/dL (74-106)
[2024-11-21 08:41] LABS: INR 0.99 (0.9-1.15); Partial Thromboplastin Time 26.8 SEC (24.5-34.5); Prothrombin Time 10.5 sec (9.3-11.8)
[2024-11-21] MEDS: ENOXAPARIN SOD 40 MG/0.4 ML SYRINGE SC SCH (10:24)
[2024-11-21] MEDS: ASPirin 81 mg TAB PO SCH (10:24)
--- NOTE | 2024-11-21 10:42 | DVHPNRES ---
Progress Note Date Seen: Nov 21, 2024 Resident Creating Document: FREIDA MADRID RESIDENT Medical Necessity Reason Pt with a Central, PICC or Fol: No Subjective Review of Systems Ms. Medel is a 64-year-old female with past medical history of hypertension, hyperlipidemia, anxiety and depression who was sent by her primary care physician due to chest pain and and bilateral lower extremity edema. Patient reports that the chest pain started 2 days back while she was cooking, pressure- like in nature, on the left side, does not radiate and not associated with exertion but does report being food getting stuck for the same amount of time. She reports dysphagia to solids and liquids. Denies burning pain. Reports that her bilateral lower extremity are swollen for the past 3 months. Denies smoking but drinks 1 alcoholic beverage every day. Associated symptoms include chills but denies fever, nausea, vomiting. Chest pain is exacerbated on palpation. On arrival patient's blood pressure was 168/101 mmHg, H&H was 11 and 35, WBC was 5. EKG showed normal sinus rhythm. environmental monitoring specialist was reviewed, patient had NSR. Tropes are negative, BNP 55. Echocardiogram is pending. Past medical/surgical history: See above Social history: Drinks 1 alcoholic beverage every day but denies smoking Patient seen at the bedside. Echocardiogram pending Objective vital signs Vital Sign Date Time Temp Pulse Resp B/P (MAP) Pulse Ox O2 Delivery O2 Flow Rate FiO2 11/21/24 09:00 97.4 79 19 128/76 (93) 93 97.4 11/20/24 20:00 Nasal Cannula* 1 24 Total Intake and Output 11/20/24 11/20/24 11/21/24 15:00 23:00 07:00 Intake Total 150 ml Output Total 0 ml Balance 150 ml medications Current Medications Medications Dose Ordered Sig/Robb Route Start Time Stop Time Status Last Admin Dose Admin Aspirin 81 mg DAILY PO 11/21/24 10:00 11/21/24 10:24 81 MG Atorvastatin Calcium 40 mg HS PO 11/20/24 22:00 11/20/24 20:38 40 MG Acetaminophen 650 mg Q6HP PRN PO 11/20/24 15:45 Nitroglycerin 0.4 mg Q5MINP PRN SL 11/20/24 15:45 Morphine Sulfate 2 mg Q30M PRN IV 11/20/24 15:45 11/20/24 18:10 2 MG Enoxaparin Sodium 40 mg DAILY SC 11/21/24 10:00 11/21/24 10:24 40 MG Hydralazine HCl 10 mg Q6HP PRN IV 11/20/24 16:00 Pantoprazole Sodium 40 mg DAILY IV 11/22/24 10:00 Ergocalciferol 50,000 unit Q7D PO 11/21/24 10:30 Examination Patient lying in bed, in no acute distress General: Well-built, afebrile, palor, mucosae are moist Cardiovascular: Regular S1 and S2. No murmurs, gallops or rubs. No JVD elevation. Bilateral 2+ pitting edema Respiratory: Normal B/L air entry on room air. Clear lung sounds on auscultation Abdomen: Soft, nontender, nondistended, normoactive bowel sounds, no rebound tenderness, no organomegaly, no masses Genitourinary: Deferred MSK/skin: Mobilizes 4 limbs. Skin is dry and warm Neurological: No motor, no sensitive deficits, normal speech. Pupils are isocoric and reactive. Psych/Mental Status: A/Ox3 laboratory and microbiology Laboratory Tests 11/21/24 05:28 Test 11/21/24 05:28 Range/Units Serum Glucose 108 H 74-106 mg/dL Labs and/or images reviewed: Labs reviewed by me, Image(s) reviewed by me Problem List/Assessment/Plan Problem List/Assessment/Plan Atypical Chest pain, likely secondary to costochondritis EKG NSR, tele regular rhythm no events Tropes and BNP WNL Bilateral lower extremity swelling likely lymphedema Ultrasound lower extremity unremarkable Dysphagia to solids and liquids Likely GERD Barium swallow completed, showed mild delayed esophageal peristalsis otherwise unremarkable Uncontrolled Hypertension Losartan 50 mg daily Vitamin-D deficiency Supplemented Anemia, likely normocytic Monitor Lovenox 40 mg sc daily Plan discussed with patient in which all questions have been answered Goals of care discussed for more than 28 minutes, full code status Case discussed with Dr. Joya Plan discussed with: Patient My Orders My Orders Orders - FREIDA MADRID RESIDENT Procedure Category Date Status Time Stool Occult Blood LAB 11/21/24 Logged 07:48 Covid19 Antigen Holli LAB 11/21/24 Logged Rapid Influenza A&B LAB 11/21/24 Logged 10:23 Furosemide Injection PHA 11/21/24 In Process (Lasix Injection) 10:30 Pantoprazole PHA 11/21/24 In Process (Protonix) 10:30 Pantoprazole PHA 11/22/24 In Process (Protonix) 10:00 Cyanocobalamin PHA 11/21/24 In Process Injection (Vitamin 10:30 Ergocalciferol PHA 11/21/24 In Process (Vitamin D 50,000 10:30 Bilat Lower Dvt US 11/21/24 Logged 10:27 Esophagus Barium XY 11/21/24 Transmitted Swallow 10:28 FREIDA MADRID RESIDENT Nov 21, 2024 10:42
[2024-11-21] MEDS: GASTROGRAFIN 120 ML SOL ONE ×2 (10:46→11:19)
[2024-11-21] MEDS: BARIUM SULFATE 98% 340 GM PWDR ONE (10:48)
[2024-11-21] MEDS: EZ-GAS II GRANULES (RADIOLOGY USE) PO ONE (10:48)
[2024-11-21] MEDS: EZ PAQUE SUSP 12OZ BTL ONE (10:49)
--- NOTE | 2024-11-21 11:35 | DVH ---
XY ESOPHAGUS BARIUM SWALLOW, HISTORY: dyspahgia sudden onset COMPARISON: None PROCEDURE: A home health physical therapist radiograph was obtained prior to the procedure. Gastrografin and effervescent gran ules were administered orally, and radiographs were obtained under intermittent fluoroscopic observat ion. Total fluoroscopic time was 0.6 minutes. DAP 208 FINDINGS: The home health physical therapist film demonstrates no abnormality. The esophagus was normal in caliber with no stricture, filling defect or wall irregularity demonstrat ed. Mild delayed esophageal peristalsis was observed. No esophageal reflux was demonstrated during this exam despite provocative maneuvers. IMPRESSION: Mild delayed esophageal peristalsis; otherwise, unremarkable esophagram.
--- NOTE | 2024-11-21 12:15 | DVH ---
US BiLat Lower DVT HISTORY: DVT COMPARISON: US BILAT LOWER DVT on DOS: 10/02/24 TECHNIQUE: Duplex Doppler evaluation of the deep venous system of the lower extremity from the common femoral veins, superficial femoral vein, great saphenous vein, deep femoral vein, popliteal vein, an d calf veins, including color Doppler and spectral/pulsed waveform analysis, was performed. FINDINGS: Right: - Common femoral vein: Compressible - Deep femoral vein: Compressible - Femoral vein: Compressible - Popliteal vein: Compressible - Posterior tibial vein: Waveforms present - Other: Nothing Left: - Common femoral vein: Compressible - Deep femoral vein: Compressible - Femoral vein: Compressible - Popliteal vein: Compressible - Posterior tibial vein: Waveforms present - Other: Nothing IMPRESSION: No right or left lower extremity deep venous thrombosis.
--- NOTE | 2024-11-21 12:28 | ECG ---
[facility] Test Date: 2024-11-20 Test Time: 14:05:19 Pat Name: ANDREZ MIGUELSILVIAepartment: ER Room: 0217T B Gender: F Manager Of Merchandising: : 1960 Requested By: RADHA HERNANDEZ Order Number: [id number] Reading MD: Jerome Steinberg Measurements Intervals [place] Rate: 78 P: 58 SD: 151 QRS: 65 QRSD: 78 T: 76 QT: 404 QTc: 461 Interpretive Statements Sinus rhythm Electronically Signed On 11-22-2024 17:35:15 PDT by Jerome Steinberg Please click the below link to view image of tracing.
[2024-11-21 12:52] LABS: COVID19 ANTIGEN SOFIA FIA NEGATIVE (NEGATIVE); Rapid Influenza A Negative (Negative); Rapid Influenza B Negative (Negative)
[2024-11-21] MEDS: ERGOCALCIFEROL 50,000 UNIT(1.25MG) CAP PO SCH (14:07)
[2024-11-21] MEDS: CYANOCOBALAMIN (B-12) 1000 MCG/1 ML VIAL IM ONE (14:09)
[2024-11-21] MEDS: FUROSEMIDE 40 MG/4 ML VIAL IV ONE (14:10)
[2024-11-21] MEDS: PANTOPRAZOLE 40 MG/10 ML VIAL INJ IV ONE (14:11)
[2024-11-21] MEDS: SERTRALINE HCL 50 MG TAB PO ONE (16:27)
[2024-11-21] MEDS: buPROPion HCL 75 MG TAB PO ONE (16:27)
[2024-11-21] MEDS: LOSARTAN POTASSIUM 50 MG TAB PO ONE (16:28)
[2024-11-21 18:53] LABS: Urine Bacteria FEW /hpf (None Seen); Urine Blood Negative /uL (Negative); Urine Clarity Clear (Clear); Urine Color Colorless (Yellow); Urine Protein, UAD Negative (Negative); Urine Specific Gravity 1.008 (1.001-1.035); Urine Squamous Epithelial Cell FEW /hpf (<5); Urine Urobilinogen Normal (Negative); Urine WBC < 1 /HPF (0-5)
[2024-11-21 18:55] LABS: Amphetamine Screen, Urine Neg (NEGATIVE); Barbiturate Scree,Urine Neg (NEGATIVE); Benzodiazephine Screen, Urine Neg (NEGATIVE); Cannabinoid Screen, Urine Neg (NEGATIVE); Cocaine Screen, Urine Neg (NEGATIVE); Opiate Scree,Urine Neg (NEGATIVE); Phencyclidine Screen, Urine Neg (NEGATIVE)
[2024-11-21] MEDS: ACETAMINOPHEN 325 MG TAB PO PRN (20:10)
[2024-11-22 01:00] VITALS: BP 99/58; PULSE 77; RESP 18; TEMP 98.6; O2SAT 97
[2024-11-22 05:00] VITALS: BP 109/68; PULSE 74; RESP 18; TEMP 98.4; O2SAT 99
[2024-11-22 07:29] LABS: Chloride 106 mmol/L (98-107); Potassium 4.8 mmol/L (3.5-5.1); Sodium 139 mmol/L (136-145)
[2024-11-22 07:30] LABS: Anion Gap 8 (5-15); Calcium 9.8 mg/dL (8.7-10.4); Carbon Dioxide 25 mmol/L (20-31)
[2024-11-22 07:35] LABS: BUN/Creatinine Ratio 18.6 (10.0-20.0); Blood Urea Nitrogen 13 mg/dL (9-23); Glucose 89 mg/dL (74-106)
[2024-11-22 08:00] VITALS: PULSE 70; PULSE 84; RESP 18
[2024-11-22 09:00] VITALS: BP 148/98; PULSE 84; RESP 19; TEMP 97.4; O2SAT 98
[2024-11-22] MEDS: PANTOPRAZOLE 40 MG/10 ML VIAL INJ IV SCH (09:17)
[2024-11-22] MEDS: buPROPion HCL 75 MG TAB PO SCH (09:18)
[2024-11-22] MEDS: SERTRALINE HCL 50 MG TAB PO SCH (09:18)
[2024-11-22] MEDS: LOSARTAN POTASSIUM 50 MG TAB PO SCH (09:19)
[2024-11-22] MEDS ORDERED: ERGOCALCIFEROL 50,000 UNIT(1.25MG) CAP PO SCH (09:30)
[2024-11-22] MEDS ORDERED: PANT40TA2 PO (12:32)
[2024-11-22 12:50] VITALS: BP 143/86; PULSE 68; RESP 16; TEMP 98.3; O2SAT 99
--- NOTE | 2024-11-22 12:57 | DVHSR ---
APPROVED REPORT EXAM: LIMITED Two-dimensional and M-mode echocardiogram with Doppler and color Doppler. Blood Pressure: 148/95 mmHg INDICATION CP RISK FACTORS Obesity: Height: 5', Weight: 209 DIMENSIONS LVDd4.3 (3.8-5.7cm)LA (2D)3.7 (1.9-4.0cm)Aortic Root3.4 (2.0-3.7cm) LVDs3.3 (2.5-4.0cm)LA (MM) (1.9-4.0cm)Aortic Cusp Exc1.8 (1.5-2.0cm) EF (%) 50.0 (55-70%)Rt. Atrium4.0 (1.9-4.0cm)Asc. Aorta cm IVSd0.9 (0.7-1.1cm)RV (D) (1.8-2.4cm) PWd0.9 (0.7-1.1cm) Mitral Valve MitralMitral Stenosis E wave1.00m/sMV Mean GR.mmHg A wave1.10m/sMV Peak GR.mmHg E/A ratio0.92D MVAcm2 Aortic Valve Aortic ValveAortic Stenosis V10.90m/[place] Mean GR.4mmHg V21.30m/[place] Peak GR.7mmHg LVOT Diameter2.1 (1.8-2.4cm)Doppler AVA2.40cm2 Pulmonic Valve V20.50m/s Tricuspid Valve TR Velocity2.70m/s [id number] Other Information Quality : Technically LimitedRhythm : Technically limited study due to body habitus. Conclusion Technically good study. Sinus rhythm. Normal chamber sizes. Normal valves. EF normal at 60% with normal RV function. Dopplers unremarkable. No pericardial effusion masses or vegetations.
[2024-11-22 13:47] VITALS: BP 143/86; PULSE 68; RESP 16; TEMP 98.3; O2SAT 99
--- NOTE | 2024-11-22 14:07 | DVHDSRES ---
Discharge Summary Date of Admission Resident Creating Document: MIKE REYES RESIDENT Nov 20, 2024 at 15:31 Date of Discharge: Nov 22, 2024 Admitting Diagnosis Atypical Chest pain Labs/Diagnostic Data: Laboratory Results Test 11/22/24 05:46 11/21/24 17:30 11/21/24 12:31 11/21/24 05:28 Sodium Level 139 mmol/L (136-145) Potassium Level 4.8 mmol/L (3.5-5.1) Chloride Level 106 mmol/L (98-107) Carbon Dioxide Level 25 mmol/L (20-31) Anion Gap 8 (5-15) Blood Urea Nitrogen 13 mg/dL (9-23) Creatinine 0.70 mg/dL (0.550-1.02) Glomerular Filtration Rate Calc 95 mL/min (>90) BUN/Creatinine Ratio 18.6 (10.0-20.0) Serum Glucose 89 mg/dL (74-106) Calcium Level 9.8 mg/dL (8.7-10.4) Urine Color Colorless (Yellow) Urine Clarity Clear (Clear) Urine pH 7.0 (5.0-9.0) Urine Specific [place] 1.008 (1.001-1.035) Urine Protein Negative (Negative) Urine Ketones Negative (Negative) Urine Blood Negative /uL (Negative) Urine Nitrite Negative (Negative) Urine Bilirubin Negative (Negative) Urine Urobilinogen Normal mg/dL (Negative) Urine Leukocyte Esterase Negative /uL (Negative) Urine RBC 1 /hpf (0 - 4) Urine Microscopic WBC < 1 /HPF (0-5) Urine Squamous Epithelial Cells Few /hpf (<5) Urine Bacteria Few /hpf (None Seen) Urine Glucose Normal mg/dL (Normal) Urine Opiates Screen Neg (NEGATIVE) Urine Fentanyl Screen Neg (NEGATIVE) Urine Barbiturates Screen Neg (NEGATIVE) Urine Phencyclidine Screen Neg (NEGATIVE) Urine Amphetamines Screen Neg (NEGATIVE) Urine Benzodiazepines Screen Neg (NEGATIVE) Urine Cocaine Screen Neg (NEGATIVE) Urine Cannabinoids Screen Neg (NEGATIVE) Influenza Type A Antigen Negative (Negative) Influenza Type B Antigen Negative (Negative) SARS-CoV-2 Antigen (Rapid) Negative (NEGATIVE) White Blood Count 5.1 10^3/uL (4.4-10.8) Red Blood Count 3.62 10^6/uL (4.0-5.20) Hemoglobin 11.5 g/dL (12.2-16.2) Hematocrit 35.0 % (36.0-46.0) Mean Corpuscular Volume 96.5 fL (80.0-100.0) Mean Corpuscular Hemoglobin 31.8 pg (28.0-32.0) Mean Corpuscular Hemoglobin Concent 33.0 g/dL (32.0-36.0) Red Cell Distribution Width 13.7 % (11.8-14.3) Platelet Count 278 10^3/uL (140-450) Mean Platelet Volume 7.7 fL (6.9-10.8) Neutrophils (%) (Auto) 62.8 % (37.0-80.0) Lymphocytes (%) (Auto) 24.9 % (10.0-50.0) Monocytes (%) (Auto) 8.8 % (0.0-12.0) Eosinophils (%) (Auto) 2.8 % (0.0-7.0) Basophils (%) (Auto) 0.7 % (0.0-2.0) Neutrophils # (Auto) 3.2 10 ^3/uL (1.6-8.6) Lymphocytes # (Auto) 1.3 10 ^3/uL (0.4-5.4) Monocytes # (Auto) 0.4 10 ^3/uL (0-1.3) Eosinophils # (Auto) 0.1 10 ^3/uL (0-0.8) Basophils # (Auto) 0 10 ^3/uL (0-0.2) Nucleated Red Blood Cells 0.0 % Prothrombin Time 10.5 sec (9.3-11.8) Prothrombin Time INR 0.99 (0.9-1.15) Activated Partial Thromboplast Time 26.8 SEC (24.5-34.5) Magnesium Level 2.3 mg/dL (1.6-2.6) Vitamin D 25-Hydroxy 13.4 ng/mL (30.0-100) Test 11/21/24 05:27 11/20/24 14:45 11/20/24 11:10 Vitamin B12 Level 391 pg/mL (211-911) Troponin I High Sensitivity 4 ng/L (</=34) Hemoglobin A1c 5.5 % A1C (<5.7) Lactic Acid Level 1.2 mmol/L (0.4-2.0) Total Bilirubin 0.4 mg/dL (0.2-1.0) Aspartate Amino Transferase (AST) 22 U/L (13-40) Alanine Aminotransferase (ALT) 22 U/L (7-40) Alkaline Phosphatase 117 U/L (46-116) B-Type Natriuretic Peptide 54.85 pg/mL (0-100) Total Protein 7.8 g/dL (5.7-8.2) Albumin 4.4 g/dL (3.2-4.8) Triglycerides Level 73 mg/dL (< 150) Cholesterol Level 181 mg/dL (< 200) LDL Cholesterol 107 mg/dL (< 100) HDL Cholesterol 71 mg/dL (40-59) Lipase 33 U/L (12-53) Thyroid Stimulating Hormone (TSH) 2.89 uIU/mL (0.55-4.78) Other Laboratory Tests 11/22/24 05:46 11/21/24 05:28 Brief Hx & Hospital Course: Ms. Medel is a 64-year-old female with a history of hypertension, hyperlipidemia, anxiety, and depression who presented with atypical chest pain and bilateral lower extremity edema. Her chest pain began two days prior to admission while she was cooking; it was described as pressure-like, non- radiating, and not associated with exertion, but worsened with palpation. She also endorsed dysphagia to both solids and liquids and reported her legs had been swollen for the past three months. She denied fever, nausea, vomiting, chills, and smoking, but reported daily alcohol intake. On arrival, BP was 168/101 mmHg, H&H were 11 and 35, WBC 5. EKG and telemetry showed normal sinus rhythm, troponins were negative, and BNP was 55. Echocardiogram showed EF of 60%, normal RV function, no pericardial effusion, and was otherwise unremarkable despite technical limitations due to body habitus. During hospitalization, her chest pain was attributed to costochondritis, given the absence of cardiac findings. Her lower extremity swelling was suspected to be lymphedema; ultrasound was unremarkable. Dysphagia was evaluated with a barium swallow that showed mildly delayed esophageal peristalsis, suggestive of GERD. Her hypertension remained uncontrolled, and she was continued on losartan 50 mg daily. Additional diagnoses included vitamin D deficiency, which was supplemented, and normocytic anemia, for which she will be monitored. She remained hemodynamically stable throughout admission. General: Well-built, afebrile, palor, mucosae are moist Cardiovascular: Regular S1 and S2. No murmurs, gallops or rubs. No JVD elevation. Bilateral 2+ pitting edema Respiratory: Normal B/L air entry on room air. Clear lung sounds on auscultation Abdomen: Soft, nontender, nondistended, normoactive bowel sounds, no rebound tenderness, no organomegaly, no masses Genitourinary: Deferred MSK/skin: Mobilizes 4 limbs. Skin is dry and warm Neurological: No motor, no sensitive deficits, normal speech. Pupils are isocoric and reactive. Psych/Mental Status: A/Ox3 Case discussed with Dr Joya Operations or Procedures XY ESOPHAGUS BARIUM SWALLOW, HISTORY: dyspahgia sudden onset COMPARISON: None PROCEDURE: A traffic signal supervisor maintenance radiograph was obtained prior to the procedure. Gastrografin and effervescent granules were administered orally, and radiographs were obtained under intermittent fluoroscopic observation. Total fluoroscopic time was 0.6 minutes. DAP 208 FINDINGS: The traffic signal supervisor maintenance film demonstrates no abnormality. The esophagus was normal in caliber with no stricture, filling defect or wall irregularity demonstrated. Mild delayed esophageal peristalsis was observed. No esophageal reflux was demonstrated during this exam despite provocative maneuvers. IMPRESSION: Mild delayed esophageal peristalsis; otherwise, unremarkable esophagram. EXAM: LIMITED Two-dimensional and M-mode echocardiogram with Doppler and color Doppler. Blood Pressure: 148/95 mmHg INDICATION CP RISK FACTORS Obesity: Height: 5', Weight: 209 DIMENSIONS LVDd 4.3 (3.8-5.7cm) LA (2D) 3.7 (1.9-4.0cm) Aortic Root 3.4 (2.0- 3.7cm) LVDs 3.3 (2.5-4.0cm) LA (MM) (1.9-4.0cm) Aortic Cusp Exc 1.8 (1.5- 2.0cm) EF (%) 50.0 (55-70%) Rt. Atrium 4.0 (1.9-4.0cm) Asc. Aorta cm IVSd 0.9 (0.7-1.1cm) RV (D) (1.8-2.4cm) PWd 0.9 (0.7-1.1cm) Mitral Valve Mitral Mitral Stenosis E wave 1.00m/s MV Mean GR. mmHg A wave 1.10m/s MV Peak GR. mmHg E/A ratio 0.9 2D MVA cm2 Aortic Valve Aortic Valve Aortic Stenosis V1 0.90m/s AO Mean GR. 4mmHg V2 1.30m/s AO Peak GR. 7mmHg LVOT Diameter 2.1 (1.8-2.4cm) Doppler ANDREW 2.40cm2 Pulmonic Valve V2 0.50m/s Tricuspid Valve TR Velocity 2.70m/s RVSP 35mmHg Other Information Quality : Technically Limited Rhythm : Technically limited study due to body habitus. Conclusion Technically good study. Sinus rhythm. Normal chamber sizes. Normal valves. EF normal at 60% with normal RV function. Dopplers unremarkable. No pericardial effusion masses or vegetations. Condition at Discharge: Stable Final Diagnosis/Problems List Atypical Chest pain, likely secondary to costochondritis ACS ruled out Bilateral lower extremity swelling likely lymphedema Dysphagia to solids and liquids Likely GERD Uncontrolled Hypertension Vitamin-D deficiency Anemia, likely normocytic Discharge Disposition: Home Discharge Instruct/Medications Diet: See Comment Diet comment: soft diet Activity: No Restrictions, As Tolerated Follow Up/Referral: pr clinic GI outpatient Medications: see prescription Discharge Statement: "Patient was advised to return to the ER or call 911 if any headaches, dizziness, shortness of breath, chest pain, abdominal pain, bleeding, fevers, or worsening of medical condition. Patient was counseled about treatment plan, medications, possible side effects, patientverbalized understanding. All questions were answered to the best of my ability. This discharge took greater then 30 minutes in planning, reviewing documentation, counseling the patient, and discussing with other team members." ASSESSMENT ASSESSMENT Assessment chest pain MIKE REYES RESIDENT Nov 22, 2024 14:07
== END 2024-11-22 14:20 | disposition home or self-care (01) | DRG 243 ==
LOC: EDBD 10:55 → ER 10:55 → OVERFLOW 15:31 → TELE-CENTR 18:01
PROVIDERS: ADMIT Internal Medicine; ATTEND Emergency Medicine
DX: K21.9 Gastro-esophageal reflux disease without esophagitis (principal); D64.9 Anemia, unspecified; E66.9 Obesity, unspecified; R73.9 Hyperglycemia, unspecified; I10 Essential (primary) hypertension; M94.0 Chondrocostal junction syndrome [Tietze]
CPT/HCPCS: 36415; 71045; 74220; 80048; 80053; 80061; 80307; 81001; 82306; 82607; 83036; 83605; 83690; 83735; 83880; 84443; 84484; 85025; 85610; 85730; 87426; 87804; 93005; 93306; 93970; G0378; J2470